=== PATIENT | male | born 1975 | race Caucasian/White ===

== ENCOUNTER → 2020-12-01 | Outpatient (CLI) | payer BC | LOC: SLEEP 14:59 | DX: R06.83 Snoring (principal); G47.33 Obstructive sleep apnea (adult) (pediatric); G47.10 Hypersomnia, unspecified | CPT/HCPCS: 95810 ==

== ENCOUNTER → 2021-06-19 | Outpatient (CLI) | payer OTHER | LOC: HEART CORB 06-05 11:30 | DX: R07.2 Precordial pain (principal); I10 Essential (primary) hypertension; R60.0 Localized edema; R06.02 Shortness of breath | CPT/HCPCS: 93306 ==